=== PATIENT | female | born 1985 | race Two or more races ===

== ENCOUNTER 2022-05-28 08:41 | Emergency (ER) | payer OTHER ==
[~2022-05-28] VITALS: Ht 160 cm; Wt 77.6 kg
[2022-05-28] MEDS ORDERED: IBU800 MG PO (12:40)
[2022-05-28] MEDS ORDERED: CYCLOBENZAPRINE10 MG PO (12:40)
== END 2022-05-28 12:44 | disposition home or self-care (01) ==
LOC: ER 08:41
DX: M54.30 Sciatica, unspecified side (principal); M51.26 Other intervertebral disc displacement, lumbar region

== ENCOUNTER 2022-06-06 13:06 | Emergency (ER) | payer OTHER ==
[~2022-06-06] VITALS: Ht 160 cm; Wt 77.6 kg
[~2022-06-06 13:06] MED LIST: CYCLOBENZAPRINE10 MG PO; IBU800 MG PO
[2022-06-06] MEDS ORDERED: MEDROLPACK PO (13:16)
== END 2022-06-06 17:32 | disposition home or self-care (01) ==
LOC: ER 13:06
DX: M51.26 Other intervertebral disc displacement, lumbar region (principal)